=== PATIENT | female | born 1990 | race Caucasian/White ===

== ENCOUNTER → 2016-12-05 | Outpatient (CLI) | payer BC ==
[~2016-12-05] MED LIST: BCPILLS PO; ONDA4TAB7 SL
[2016-12-08 07:28] LABS: CHLAMYDIA TRACH RNA*** NOT DETECTED (NOT DETECTED); GC (NEIS GONORRHOEAE)RNA** NOT DETECTED (NOT DETECTED)
== END | disposition home or self-care (01) ==
LOC: C.LABSPEC 17:19
PROVIDERS: ATTEND Physician Assistant
DX: Z01.419 Encounter for gynecological examination (general) (routine) without abnormal findings (principal)

== ENCOUNTER 2020-10-10 23:45 | Inpatient (IN) ==
[2020-10-11] MEDS ORDERED: OXYTOCIN 30 UNITS/500 ML BAG IV PRN ×2 (00:17→09:55)
[2020-10-11] MEDS ORDERED: PENICILLIN G POTASSIUM 3 MU in DEXTROSE 5% 100 ML IV PRN (00:17)
[2020-10-11] MEDS: LACTATED RINGER'S 1,000 ML IV PRN ×2 (00:31→02:20)
[2020-10-11] MEDS ORDERED: PENICILLIN G POTASSIUM 6 MU in DEXTROSE 5% 250 ML IV ONE (00:45)
[2020-10-11 00:50] LABS: Hematocrit (blood only) 33.4 % (37-47); Hemoglobin 11.5 g/dL (12.0-16.0); Mean Corpuscular Hemoglobin 30.3 pg (25-34); Mean Corpuscular Hgb Conc 34.4 g/dL (32-36); Mean Corpuscular Volume 88.1 fL (80-100); Mean Platelet Volume 10.7 fL (7.4-10.4); Platelet Count 167 K/uL (130-400); Red Blood Count 3.79 M/uL (4.2-5.4); White Blood Count 11.02 K/uL (4.8-10.8)
[2020-10-11] MEDS ORDERED: ONDANSETRON INJ 2 MG/ML 2 ML VIAL IV PRN ×2 (01:11→04:59)
[2020-10-11] MEDS ORDERED: ONDANSETRON INJ 2 MG/ML 2 ML VIAL ONE (01:13)
[2020-10-11] MEDS ORDERED: ceFAZolin 2000MG 2,000 MG/15 ML SYR IV ONE ×2 (02:30→03:15)
[2020-10-11] MEDS ORDERED: VANCOMYCIN HCL 1,750 MG in SODIUM CHLORIDE 0.9% 500 ML IV ONE (02:45)
[2020-10-11 03:10] LABS: BUN Creatinine Ratio 10.7 (10-20); Calcium 8.8 mg/dl (8.5-10.1); Creatinine Clr Calc Pharmacy 147.7 ml/min; Est GFR (African American) 144.6 ml/min; Est GFR (Non-African American) 124.7 ml/min; Potassium 3.6 mmol/L (3.5-5.1)
--- NOTE | 2020-10-11 03:28 | Hospitalist Consultation ---
Date of Consultation October 11, 2020 Assessment & Plan (1) Tachycardia: 30yo at 38+5wga in active labor presents with sudden-onset tachycardia, palpitations, and chest discomfort about 10-20 minutes after penicillin IV infusion was started. Tachycardia, palpitations, chest discomfort Agree with 1L fluid bolus Both mother and tachycardia have resolved at this time; patient is hemodynamically stable While patient was symptomatic, EKG showed sinus tachycardia, possibly atrial flutter Differential includes penicillin hypersensitivity reaction, pulmonary embolism, atrial flutter Factors supporting penicillin reaction include symptom onset in relation to start of infusion and gradual improvement since infusion discontinuation; however, patient without classic hypersensitivity symptoms Some concern for PE - recommend BL LE duplex to evaluate (d-dimer without utility in this case, CT is relatively contraindicated prior to delivery) For changing antibiotic for GBS treatment, recommend avoiding cephalosporins if possible (very small but nonzero chance of cross-reactivity if patient's symptoms represented penicillin hypersensitivity) Supervising Physician Co-Signing Physician Notes Attending addendum: I have supervised the medical residents activities, and agree with the H&P unless as otherwise noted. Assessment and Plan: SVT- Likely volume depleted, given 1 L fluid normal saline, may need a second liter as well. Check CBC with differential, chemistry profile and magnesium levels Continue to monitor closely Order lower extremity venous Dopplers, further testing for PE if abnormal GBS treatment- Avoid penicillins of note as adverse reaction Would avoid cephalosporins at this time as well. Would add azithromycin 5 mg IV daily if further treatment is needed Remaining orders and notations as noted. Hospitalist service will follow along during hospital stay History of Present Illness Reason for Consultation: Tachycardia, palpitations Attending Physician: Hemanth Espinoza MD History of Present Illness Patient is a 30yo @ 38+5wga who developed sudden-onset tachycardia (150- 170s), palpitations, chest discomfort, and infrequent shivering while in labor. Symptoms started about 10-20 minutes after penicillin infusion began, which was started because patient is GBS positive. Within about 20 minutes of symptom onset, penicillin was discontinued. In the 30-40 minutes since then, patient's symptoms have improved slightly, though they have not resolved. tachycardia was noted, which began at the same time as patient's tachycardia; however, tachycardia resolved about 20 minutes after penicillin infusion was stopped. Patient endorses nausea which preceded onset of the above symptoms. Patient denies shortness of breath, headache, vision changes, current chest pain, or other new symptoms. Allergies Allergy/AdvReac Type Severity Reaction Status Date / Time Penicillins Allergy Severe Tachycardia Verified 10/11/20 03:17 Home Medications Medication Instructions Recorded Confirmed Type prenat.vits,skyler,[id number] 1 tab PO DAILY 03/06/20 10/11/20 History ferrous sulfate 325 mg (65 mg 325 mg PO DAILY 10/02/20 10/11/20 History iron) tablet (Feosol) docusate sodium 100 mg capsule 100 mg PO DAILY 10/11/20 10/11/20 History (Colace) Patient History Surgical History H/O oral surgery Family History Grandfather (Paternal) Cancer Grandmother (Paternal) Cancer Mother Hypertension Grandmother (Maternal) Hypertension Father Multiple sclerosis Sister Multiple sclerosis Other Diabetes Denies family history of Ovarian cancer Bipolar disorder Colorectal cancer Social History (Updated 03/06/20 @ 10:11 by Shantell Dodson) Smoking Status: Never smoker Hx Alcohol Use: No Hx Substance Use: No Preferred Language: Belizean Communication Ability: Effective Street Sweeper Operator Required: No Beliefs That Will Affect Care: None marital status: marital status details: Thad (37) [phone] Current Living Situation: Spouse Current Living Situation Comment: house with current occupational status: employed current occupation: vocational rehab counselor Other Information That Helps Us Care for You: No Feels Safe at Home: Yes Safety Concerns: Feels Safe At This Time Assistive Devices: None Review of Systems Review of Systems: See HPI Physical Exam Physical Exam: Constitutional: mild but appropriate distress secondary to labor, nausea HEENT: no conjunctival injection, no perioral edema CV: tachycardic, no murmur appreciated, extremities well-perfused Resp: CTABL, no wheezes/rales/rhonchi appreciated, no stridor GI: gravid Skin: no hives or other rash appreciated Neuro: AOx4, no focal neurological deficits appreciated Results & Data Results & Data ([facility]) Vital Signs (Past 12 Hours) Vital Signs Temp Pulse Resp BP Pulse Ox 10/11/20 03:12 87 96 10/11/20 03:07 83 97 10/11/20 03:02 83 97 10/11/20 02:59 93 H 97/63 L 10/11/20 02:57 93 H 97 10/11/20 02:52 97 H 97 10/11/20 02:47 86 98 10/11/20 02:44 82 111/69 10/11/20 02:42 88 99 10/11/20 02:37 105 H 100 10/11/20 02:35 36.6 C 18 10/11/20 02:32 98 H 99 10/11/20 02:30 88 106/65 10/11/20 02:27 88 99 10/11/20 02:22 88 99 10/11/20 02:18 95 H 111/72 10/11/20 02:17 103 H 100 10/11/20 02:12 99 H 99 10/11/20 02:07 110 H 99 10/11/20 02:02 141 H 99 10/11/20 01:59 139 H 102/56 L 10/11/20 01:57 122 H 99 10/11/20 01:52 147 H 99 10/11/20 01:47 156 H 99 10/11/20 01:44 151 H 114/55 L 10/11/20 01:42 153 H 99 10/11/20 01:37 164 H 99 10/11/20 01:32 148 H 99 10/11/20 01:30 36.7 C 10/11/20 01:29 153 H 112/56 L 10/11/20 01:27 153 H 99 10/11/20 01:22 151 H 98 10/11/20 01:03 76 115/63 10/11/20 00:29 36.6 C 18 10/10/20 23:59 36.6 C 82 18 134/80 Resident Activity Tracking Resident Involvement: Resident Care Provided Care Provided: Adult Hospital Medicine and OB Delivery
[2020-10-11] MEDS ORDERED: BUPIVACAINE 0.25% 30 ML VIAL ONE (04:11)
[2020-10-11] MEDS ORDERED: ePHEDrine sulfate 50 MG/ML AMP ONE (04:11)
[2020-10-11] MEDS ORDERED: fentaNYL 2MCG/ML ROPIVACAINE 1.25MG/ML 100 ML BAG EPI ONE (04:11)
[2020-10-11] MEDS ORDERED: SODIUM CHLORIDE 0.9% INJ 10 ML VIAL ONE (04:11)
[2020-10-11] MEDS ORDERED: fentaNYL citrate 100 MCG/2 ML VIAL ONE (04:11)
--- NOTE | 2020-10-11 04:25 | Anesthesiology Consultation ---
Date of Service October 11, 2020 Assessment & Plan Chart Review Chart Review: Acceptable Risk for Surgery, Patient NOT seen in Pre Admission Testing and Acceptable Risk for Labor Epidural Consults Requested none ASA ASA2 Proposed Anesthesia Anesthesia Type: Labor Epidural and CSE History Height/Weight Height: 5 ft 3 in Weight: 86.183 kg Allergies Allergy/AdvReac Type Severity Reaction Status Date / Time Penicillins Allergy Severe Tachycardia Verified 10/11/20 03:17 Medications Home Medications Medication Instructions Recorded Confirmed Last Taken prenat.vits,skyler,[id number] 1 tab PO DAILY 03/06/20 10/11/20 10/10/20 ferrous sulfate 325 mg (65 mg 325 mg PO DAILY 10/02/20 10/11/20 10/10/20 iron) tablet (Feosol) docusate sodium 100 mg capsule 100 mg PO DAILY 10/11/20 10/11/20 10/10/20 (Colace) Active Medications Generic Name Dose Route Start Last Admin Trade Name Freq PRN Reason Stop Dose Admin Lactated Ringer's 1,000 mls @ 125 mls/hr 10/11/20 00:17 10/11/20 02:20 Lr IV 10/13/20 00:16 125 mls/hr .Q8H PRN Administration L&D Protocol Protocol Exercise / Class Metabolic Activity II 4-5 Yardwork/Stairs/Walk up hill Past Family History Family History Grandfather (Paternal) Cancer Grandmother (Paternal) Cancer Mother Hypertension Grandmother (Maternal) Hypertension Father Multiple sclerosis Sister Multiple sclerosis Other Diabetes Denies family history of Ovarian cancer Bipolar disorder Colorectal cancer Past Surgical History Surgical History H/O oral surgery Past Anesthesia History No Hx of Anesthesia Complications and No Family Hx of Anesthesia Complications History of PONV No Hx of PONV and No Hx of Motion Sickness Social History Smoking Status: Never smoker Hx Alcohol Use: No Hx Substance Use: No Physical Exam Vital Signs Last Vital Signs Temp 36.5 C 10/11/20 03:30 Pulse 94 H 10/11/20 04:19 Resp 18 10/11/20 03:30 BP 118/63 10/11/20 03:29 Pulse Ox 99 10/11/20 04:19 Testing Laboratory Results 10/11/20 00:36 10/11/20 02:15
[2020-10-11] MEDS ORDERED: NALOXONE HCL 1 MG in SODIUM CHLORIDE 0.9% 1000ML 1,000 ML IV PRN (04:59)
[2020-10-11] MEDS ORDERED: ePHEDrine sulfate 50 MG/ML AMP IV PRN (04:59)
[2020-10-11] MEDS ORDERED: NALBUPHINE HCL INJ 10 MG/ML AMP IV PRN (04:59)
[2020-10-11] MEDS ORDERED: NALOXONE HCL 0.4 MG/1 ML VIAL/CARP IV PRN (04:59)
[2020-10-11] MEDS ORDERED: diphenhydrAMINE 50 MG/ML VIAL IV PRN (04:59)
[2020-10-11] MEDS ORDERED: fentaNYL 2MCG/ML ROPIVACAINE 1.25MG/ML 100 ML BAG EPI PRN (04:59)
[2020-10-11] MEDS ORDERED: PROMETHAZINE HCL 25 MG in SODIUM CHLORIDE 0.9% 50 ML IV PRN (04:59)
--- NOTE | 2020-10-11 07:53 | History & Physical Report ---
Date of Service October 11, 2020 Assessment & Plan (1) Supervision of normal intrauterine in primigravida: Plan: Patient is a 30-year-old at 38 weeks 4 days gestational age presents with spontaneous rupture membranes. Patient is reporting increasing contractions. 1.Fetus: Rective NST 2. Labor SROM. Will augment as indicated 3. Vitals wnl 4. GBS positive: PCN (2) SROM (spontaneous rupture of membranes): History of Present Illness Primary Care Provider: NO PCP 30-year-old at 38 weeks 4 days gestational age presents for leakage of fluid. Patient was noted be grossly ruptured. reports some pinkish discharge. Reports irregular contractions. Good movement. complicated by GBS positive. OB Labs: Blood Type A Positive 03/12/20 Antibody Screen NEGATIVE 03/12/20 Hemoglobin 10.7 g/dL (12.0-16.0) L 07/27/20 Hematocrit 31.5 % (37-47) L 07/27/20 Mean Corpuscular Volume 81.5 fL (80-100) 03/12/20 Platelet Count 235 K/uL (130-400) 03/12/20 Rubella IgG Antibody Immune (Immune) 03/12/20 Rapid Plasma Reagin Nonreactive (Nonreactive) 03/12/20 Hepatitis B Surface Antigen Neg (Neg) 03/12/20 HIV (1&2) Ab and P24 Ag, 4th Gener Neg (Neg) 03/12/20 Glucose 1 Hour 50 gm Load 108 mg/dl (70-130) 07/27/20 Maternal Serum Alpha Fetoprotein 39.7 ng/mL 05/07/20 OB Optional Labs: Chlamydia trachomatis RNA NOT DETECTED (NOT DETECTED) 03/12/20 Neisseria gonorrhoeae RNA NOT DETECTED (NOT DETECTED) 03/12/20 Alpha Fetoprotein Triple Screen SEE NOTE 05/07/20 Labs Reviewed: cf/sma neg low risk invitae--akh afp neg--ak Allergies Allergy/AdvReac Type Severity Reaction Status Date / Time Penicillins Allergy Severe Tachycardia Verified 10/11/20 03:17 Home Medications Medication Instructions Recorded Confirmed Type prenat.vits,skyler,[id number] 1 tab PO DAILY 03/06/20 10/11/20 History ferrous sulfate 325 mg (65 mg 325 mg PO DAILY 10/02/20 10/11/20 History iron) tablet (Feosol) docusate sodium 100 mg capsule 100 mg PO DAILY 10/11/20 10/11/20 History (Colace) Patient History Surgical History H/O oral surgery Family History Grandfather (Paternal) Cancer Grandmother (Paternal) Cancer Mother Hypertension Grandmother (Maternal) Hypertension Father Multiple sclerosis Sister Multiple sclerosis Other Diabetes Denies family history of Ovarian cancer Bipolar disorder Colorectal cancer Social History (Updated 03/06/20 @ 10:11 by Shantell Dodson) Smoking Status: Never smoker Hx Alcohol Use: No Hx Substance Use: No Preferred Language: Romanian Communication Ability: Effective Public Safety Director Required: No Beliefs That Will Affect Care: None marital status: marital status details: Thad (37) [phone] Current Living Situation: Spouse Current Living Situation Comment: house with current occupational status: employed current occupation: vocational rehab counselor Other Information That Helps Us Care for You: No Feels Safe at Home: Yes Safety Concerns: Feels Safe At This Time Assistive Devices: Glasses Physical Exam Constitutional: WD/WN, vitals as above well developed, well nourished and + well hydrated; no acute distress Neck: trachea midline, no thyromegaly Respiratory: normal respiratory effort, lungs clear to auscultation no respiratory distress, no labored breathing and no cough Cardiovascular: RRR, no murmur, no edema Heart Sounds: normal S1 and normal S2 Gastrointestinal (Abdomen): normal bowel sounds, soft, nontender, no hepatosplenomegaly Inspection/Auscultation: abdomen not distended and no abdominal edema Musculoskeletal: no cyanosis or clubbing, extremities motor strength 5/5 Head/Neck/Chest: + head abnormal to inspection Skin: no rashes, warm and dry normal turgor Psychiatric: A+Ox3, euthymic affect Apperance: appropriately dressed and appropriately groomed Genitourinary: Manual OB Exam: + cervical dilation 5 cm, + cervical effacement 70%, + station -2 and + amniotic fluid clear OB Exam Monitor Tracing: + external FHT monitor used, + external uterine monitor used, + category I and + normal FHT variability Lymphatic: no cervical or axillary lymphadenopathy Results & Data ([facility]) Vital Signs (Past 12 Hours) Vital Signs Temp Pulse Resp BP 10/10/20 23:59 36.6 C 82 18 134/80 Coding Level of Care Code None Diagnoses Supervision of normal intrauterine in primigravida Z34.00 SROM (spontaneous rupture of membranes)
--- NOTE | 2020-10-11 08:03 | Labor Progress Brief Note ---
Date of Service October 11, 2020 Subjective presented to bedside to evaluate acute onset maternal and tachycardia. Patient is reporting heart palpitations and related chest discomfort. Patient is denying any chest tightness, shortness of breath, throat tightness, or rash. Patient reports nausea followed by vomiting preceding the onset of tachycardia. the symptoms started approximately 10-15 minutes after starting penicillin. Patient denies any known history of penicillin allergy and has had amoxicillin within the past couple years and tolerated without issue. We discontinue the medication and completed an EKG which showed sinus tachycardia. Approximately 10 minutes to 15 minutes after stopping the penicillin symptoms started to improve and heart rate declined to normal. tachycardia after also resolved. We placed a scalp electrode for better monitoring. Contacted the hospitalist service for evaluation please see their note for additional details. I contacted pharmacy to discuss further treatment of the GBS positive as we were concerned that this was a reaction to the penicillin. In discussion with pharmacy we did not feel that this was an anaphylactic reaction. They recommended we try Ancef because they did not feel that this was an anaphylactic reaction and would be safe to give. Medicine later contacted us and recommended lower extremity Doppler to evaluate for DVT and help rule out a PE. They recommended against the Ancef however the Ancef had already been given to the patient and she did tolerate it well. Assessment & Plan Admission and Anticipated Discharge Date Admission Date: October 11, 2020 Results & Data ([facility]) Vital Signs (Past 12 Hours) Vital Signs Temp Pulse Resp BP Pulse Ox 10/11/20 07:49 76 99 10/11/20 07:44 83 99 10/11/20 07:39 97 H 98/56 L 98 10/11/20 07:34 81 100 10/11/20 07:29 72 99 10/11/20 07:26 74 102/59 L 10/11/20 07:24 109 H 98 10/11/20 07:19 87 99 10/11/20 07:14 94 H 99 10/11/20 07:10 91 H 116/65 10/11/20 07:09 86 99 10/11/20 07:04 91 H 98 10/11/20 07:00 18 10/11/20 06:59 109 H 99 10/11/20 06:56 93 H 108/69 10/11/20 06:54 96 H 99 10/11/20 06:49 103 H 97 10/11/20 06:44 86 98 10/11/20 06:40 82 107/66 10/11/20 06:39 86 98 10/11/20 06:34 84 96 10/11/20 06:30 18 10/11/20 06:29 90 96 10/11/20 06:25 89 98/56 L 10/11/20 06:24 83 97 10/11/20 06:19 84 96 10/11/20 06:14 85 97 10/11/20 06:10 84 100/59 L 10/11/20 06:09 86 97 10/11/20 06:04 82 96 10/11/20 06:00 16 10/11/20 05:59 86 97 10/11/20 05:54 82 99/56 L 97 10/11/20 05:51 89 97/55 L 10/11/20 05:49 85 97 10/11/20 05:47 86 97/56 L 10/11/20 05:44 96 H 98 10/11/20 05:41 95 H 96/56 L 10/11/20 05:39 85 98 10/11/20 05:37 88 101/59 L 10/11/20 05:34 85 97 10/11/20 05:32 87 94/58 L 10/11/20 05:30 18 10/11/20 05:29 94 H 97 10/11/20 05:26 86 98/56 L 10/11/20 05:24 85 98 10/11/20 05:21 90 100/61 10/11/20 05:19 93 H 98/60 L 99 10/11/20 05:18 36.6 C 18 10/11/20 05:17 98 H 105/62 10/11/20 05:15 100 H 110/61 10/11/20 05:14 96 H 100 10/11/20 05:13 87 129/59 L 10/11/20 05:11 87 88/55 L 10/11/20 05:10 81 90/54 L 10/11/20 05:09 83 89/55 L 97 10/11/20 05:07 85 91/55 L 10/11/20 05:05 89 82/47 L 10/11/20 05:04 94 H 98 10/11/20 05:03 85 87/52 L 10/11/20 05:01 95 H 93/50 L 10/11/20 05:00 97 H 18 87/54 L 10/11/20 04:59 93 H 89/54 L 98 10/11/20 04:57 85 96/61 L 10/11/20 04:55 85 101/64 10/11/20 04:54 85 98 10/11/20 04:53 104 H 111/67 10/11/20 04:51 97 H 116/76 10/11/20 04:49 92 H 97 10/11/20 04:48 100 H 115/80 10/11/20 04:44 103 H 98 10/11/20 04:40 100 H 115/82 10/11/20 04:39 92 H 99 10/11/20 04:34 94 H 98 10/11/20 04:30 18 10/11/20 04:29 84 99 10/11/20 04:24 83 95 10/11/20 04:19 94 H 99 10/11/20 04:14 80 98 10/11/20 04:09 86 98 10/11/20 03:52 90 99 10/11/20 03:47 78 99 10/11/20 03:42 85 98 10/11/20 03:37 94 H 99 10/11/20 03:32 83 99 10/11/20 03:30 36.5 C 18 10/11/20 03:29 91 H 118/63 10/11/20 03:27 88 97 10/11/20 03:22 95 H 98 10/11/20 03:17 84 98 10/11/20 03:12 87 96 10/11/20 03:07 83 97 10/11/20 03:02 83 97 10/11/20 02:59 93 H 97/63 L 10/11/20 02:57 93 H 97 10/11/20 02:52 97 H 97 10/11/20 02:47 86 98 10/11/20 02:44 82 111/69 10/11/20 02:42 88 99 10/11/20 02:37 105 H 100 10/11/20 02:35 36.6 C 18 10/11/20 02:32 98 H 99 10/11/20 02:30 88 106/65 10/11/20 02:27 88 99 10/11/20 02:22 88 99 10/11/20 02:18 95 H 111/72 10/11/20 02:17 103 H 100 10/11/20 02:12 99 H 99 10/11/20 02:07 110 H 99 10/11/20 02:02 141 H 99 10/11/20 01:59 139 H 102/56 L 10/11/20 01:57 122 H 99 10/11/20 01:52 147 H 99 10/11/20 01:47 156 H 99 10/11/20 01:44 151 H 114/55 L 10/11/20 01:42 153 H 99 10/11/20 01:37 164 H 99 10/11/20 01:32 148 H 99 10/11/20 01:30 36.7 C 10/11/20 01:29 153 H 112/56 L 10/11/20 01:27 153 H 99 10/11/20 01:22 151 H 98 10/11/20 01:21 20 10/11/20 01:03 76 115/63 10/11/20 00:29 36.6 C 18 10/10/20 23:59 36.6 C 82 18 134/80 Coding Level of Care Code None
[2020-10-11] MEDS ORDERED: ACETAMINOPHEN 325 MG TAB PO PRN (09:55)
[2020-10-11] MEDS ORDERED: bisacodyL 10 MG SUPP PR PRN (09:55)
[2020-10-11] MEDS ORDERED: SUPERCREAM 0.870% 15 GM JAR EXT PRN (09:55)
[2020-10-11] MEDS ORDERED: BENZOCAINE 20% AER SPR 82.5 GM CAN EXT PRN (09:55)
[2020-10-11] MEDS ORDERED: HYDROCORTISONE ACETATE 25 MG SUPP PR PRN (09:55)
[2020-10-11] MEDS ORDERED: DIPHTHERIA/TETANUS/PERTUSSIS 0.5 ML SYR/VIAL IM ONE (09:55)
--- NOTE | 2020-10-11 10:14 | Delivery Summary ---
Vaginal Delivery Summary Date of Service October 11, 2020 Vaginal Delivery Summary [facility] PREOPERATIVE DIAGNOSIS: 1. Single intrauterine at 38 5/7 wga 2. SROM/labor 3. GBS+ POSTOPERATIVE DIAGNOSIS: 1. Single intrauterine at 38 5/7 wga 2. SROM/labor 3. GBS+ 4. Delivered PROCEDURE: 1. Normal spontaneous vaginal delivery. SURGEON: Mounika Toure MD ANESTHESIA: Epidural. ESTIMATED BLOOD LOSS: 200 mL FLUIDS: Continuous LR. URINE OUTPUT: None. COMPLICATIONS: None. CONDITION: Stable. INDICATIONS: 30 y/o G1 at 38 5/7 wga presented last evening w/ ctx increasing in frequency and LOF. She was found to be SROM and admitted. She was started on penicillin for GBS+ prophylaxis however shortly after initiating penicillin, was found to be tachycardic with symptoms associated and tachycardia was also noted. PCN was stopped and hospitalist was consulted to r/o anaphylactic reaction. Pharmacy was contacted and recommended ancef for treatment and the pt did tolerate this well. She continued to progress until she was complete and desired to push. Venous doppler was recommended by medicine to r/o DVT so was ordered following delivery. FINDINGS: A viable female with Apgars of 8 and 9 at 1 and 5 minutes respectively. SPECIMEN: Cord blood OPERATIVE REPORT: The patient progressed to 10 cm, 100% effaced and +2 station, pushed over intact perineum with anesthesia to deliver a viable female , Apgars as above. Head of delivered in [place] position. Loose nuchal cord was present and delivered through. Body and shoulders were delivered without difficulty. was delivered to maternal abdomen and nursing staff. Delayed cord clamping was performed for 60 seconds. Cord was clamped and cut. Cord blood was obtained. Placenta delivered spontaneously intact with 3-vessel cord. IV oxytocin and fundal massage were given for excellent hemostasis. Vagina, cervix, perineum, and placenta were inspected. A left labial laceration was noted and repaired using 4-0 Vicryl, excellent hemostasis was achieved. Sponge and needle counts correct x2. No sponges were left behind. Mother and stable in immediate period. [facility] Vaginal Delivery Charge Vaginal Delivery Codes: 80594 global code for the antepartum, delivery, and post- Delivery Type Details: [facility]
--- NOTE | 2020-10-11 11:15 | Anesthesia Procedure Note ---
Date of Service October 11, 2020 Anesthesia Post Epidural Note Vital Signs Vital Signs: Temp Pulse Resp BP Pulse Ox 98.4 F 74 16 109/63 97 10/11/20 07:15 10/11/20 11:04 10/11/20 07:15 10/11/20 11:04 10/11/20 09:34 Notes Mental Status: alert / awake / arousable and participated in evaluation Nausea / Vomiting: adequately controlled Pain: adequately controlled Airway Patency, RR, SpO2: stable & adequate BP & HR: stable & adequate Hydration State: stable & adequate Neuraxial Anesthesia: was administered and sensory block is resolving Anesthetic Complications: no major complications apparent and Pt Satisfied with anesthetic care Epidural: Removed without complications and With tip intact
--- NOTE | 2020-10-11 11:51 | Ultrasound Report ---
BILATERAL LOWER EXTREMITY VENOUS DOPPLER HISTORY: Acute pain and swelling of the lower legs r/o DVT, tachycardia in labor following penicilli n COMPARISON STUDY: None. FINDINGS: There is normal compressibility, flow, and augmentation within the bilateral lower extremit y deep venous systems. IMPRESSION: No DVT within the right or left lower extremity. ACT 112: Negative or not required by law. Electronically signed by: Hemanth Dixon M.D. 10/11/2020 11:50 AM
--- NOTE | 2020-10-11 12:23 | Communication Note ---
Date of Service: October 11, 2020 30 yo at 38.5 weeks, complicated by +GBS infection, presenting with labor. Received penicillin overnight for GBS infection but developed acute symptoms of chest pain, palpitations, tachycardia almost immediately after initiating penicillin. Penicillin discontinued, replaced with Ancef. Symptoms resolved and hemodynamically stable shortly after penicillin discontinuation. Pt seen by hospitalist team. 8/5 AM- chart reviewed, labs unremarkable, other etiologies such as pulmonary embolism ruled out in favor of penicillin allergic/hypersensitivity reaction. Pt seen this morning, no acute complaints, symptoms resolved. Benign physical exam. No concerns from hospitalist team, patient counseled about allergic/hypersensitivity reactions, advised to follow up with PCP after discharge and inform about penicillin reaction. I personally examined the patient and verified all arora points of history and exam, discussed case, and agree with decision making with Dr Guajardo. Feeling good. No further heart racing since penicillin was stopped. No chest pain or shortness of breath. [place] nothing untoward in her chest/heart during delivery either. Tachycardiasee above almost certainly a reaction to the penicillin. Discussed with patient would hesitate even call it a true allergy given lack of rash etc.although certainly advised that any penicillin based antibiotics should be used with caution and close observation in the future. Resident Activity Tracking Resident Involvement: Resident Care Provided Care Provided: Adult Hospital Medicine
[2020-10-11] MEDS: IBUPROFEN 600 MG TAB PO PRN ×2 (12:49→17:32)
[2020-10-11] MEDS: DOCUSATE SODIUM 100 MG CAP PO SCH (21:14)
--- NOTE | 2020-10-12 02:20 | Billing Data ---
Date of Service October 12, 2020 Coding Level of Care Code 99533 Inpt Consult Level 3
--- NOTE | 2020-10-12 06:32 | Obstetrical Progress Note ---
Date of Service <Laura GregoryDO - Last Filed: 10/12/20 06:32> October 12, 2020 Assessment & Plan <Laura Jenkins DO - Last Filed: 10/12/20 06:32> (1) Encounter for care and examination after delivery: 30 yo post op day1 from [facility] , doing well. -Continue routine post care. -vital signs reviewed and WNL (Tmax 36.8) -Blood Type A+, GBS+ given Ancef, Rubella Immune -Encourage ambulation, monitor and control pain with Motrin, Percocet PRN, resume regular diet, monitor lochia -encourage breast feeding -hemoglobin 11.5 (8/5) Day #:: 1 <Mounika Toure MD - Last Filed: 10/12/20 07:18> (1) Encounter for care and examination after delivery: Subjective <Laurajeremias Jenkins DO - Last Filed: 10/12/20 06:32> Ambulation: ambulating normally Voiding: no voiding problems Passing Gas:: Yes (no stool yet) Diet Tolerance:: regular diet Lochia:: Small Feeding Type:: breast feeding Current Pain Level(1-10): 1 (pain well controlled on medication) Review of Systems Denies fever, chills, sweats Denies shortness of breath, difficulty breathing, chest pain, palpitations, chest pressure. Denies breast pain. Denies dysuria. Denies headache or changes in vision. Physical Exam <Laura GregoryDO - Last Filed: 10/12/20 06:32> General: Alert, oriented. No acute distress. Cardiac: Regular rate and rhythm, no murmurs/rubs/gallops. Respiratory: Clear to auscultation bilaterally a/p, no wheezes/rales/rhonchi. No increased work of breathing. Symmetrical chest rise. No respiratory distress. Abdomen: Soft, nontender, nondistended. Bowel sounds present. Uterus: Uterine fundus firm, palpable at umbilicus. Lower Extremities: No lower extremity edema or swelling. No deep calf pain. Mansi's negative bilaterally.. Results & Data ([facility]) <Laura Jenkins DO - Last Filed: 10/12/20 06:32> Vital Signs (Past 12 Hours) Vital Signs Temp Pulse Resp BP Pulse Ox 10/12/20 03:24 36.8 C 76 16 99/62 L 97 10/11/20 23:20 37 C 79 16 106/70 96 10/11/20 19:25 36.8 C 66 18 111/73 98 Medications Administered Current Inpatient Medications Acetaminophen (Acetaminophen 325 Mg Tab) 650 mg PO Q6H PRN PRN Reason: Pain/THOMAS/Fever Stop: 11/10/20 09:54 Benzocaine (Benzocaine 20% Aer Spr 82.5 Gm Can) 1 appln EXT PRN PRN PRN Reason: Perineal Discomfort Stop: 11/10/20 09:54 Last Admin: 10/11/20 12:49 Dose: 1 appln Documented by: Bisacodyl (Bisacodyl 5 Mg Tabec) 5 mg PO 1999 [facility] Stop: 10/12/20 20:01 Bisacodyl (Bisacodyl 10 Mg Supp) 10 mg HI DAILY PRN PRN Reason: No BM on 2nd post- day Stop: 11/10/20 09:54 Cocaine HCl (Supercream 0.870% 15 Gm Jar) 1 gm EXT BID PRN PRN Reason: Hemorrhoidal Inflammation Stop: 10/25/20 09:54 Docusate Sodium (Docusate Sodium 100 Mg Cap) 100 mg PO DAILY@ [facility] Stop: 11/10/20 20:59 Last Admin: 10/11/20 21:14 Dose: 100 mg Documented by: Hydrocortisone (Hydrocortisone Acetate 25 Mg Supp) 25 mg HI BID PRN PRN Reason: Hemorrhoidal Inflammation Stop: 11/10/20 09:54 Oxytocin (Pitocin) 30 units in 500 mls @ 333.333 mls/hr IV .Q1H30M PRN; Protocol PRN Reason: Bleeding Control Stop: 11/10/20 09:54 Ibuprofen (Ibuprofen 600 Mg Tab) 600 mg PO Q4H PRN PRN Reason: Pain/THOMAS/Cramping/Fever Stop: 11/10/20 09:54 Last Admin: 10/11/20 17:32 Dose: 600 mg Documented by: Prenat Multivit/[place]/Iron/Folic Ac ( Vitamin 1 Tab) 1 tab PO DAILY@08 [facility] Stop: 11/11/20 07:59 <Mounika Toure MD - Last Filed: 10/12/20 07:18> Co-Signing Physician Notes Resident Physician Supervision Note: I interviewed and examined the patient. Discussed with Dr. Jenkins and agree with findings and plan as documented in the note. Any exceptions or clarifications are listed here: PP1 from , doing well. No further tachycardic events following penicillin discontinuation yesterday AM. Hospitalist in agreement suspect a reaction to penicillin. Duplex wnl. VSS, exam benign and wnl. Continue routine pp care Documented By: Mounika Toure MD Resident Activity Tracking <Laura Jenkins, DO - Last Filed: 10/12/20 06:32> Resident Involvement: Resident Care Provided Care Provided: OB Delivery
[2020-10-12 07:30] LABS: Hematocrit (blood only) 36.1 % (37-47); Hemoglobin 12.2 g/dL (12.0-16.0); Mean Corpuscular Hemoglobin 30.5 pg (25-34); Mean Corpuscular Hgb Conc 33.8 g/dL (32-36); Mean Corpuscular Volume 90.3 fL (80-100); Mean Platelet Volume 10.9 fL (7.4-10.4); Platelet Count 175 K/uL (130-400); RDW Coefficient of Variation 13.3 % (11.5-14.5); RDW Standard Deviation 43.3 fL (36.4-46.3); White Blood Count 16.49 K/uL (4.8-10.8)
[2020-10-12] MEDS: IBUPROFEN 600 MG TAB PO PRN ×3 (08:04→19:33)
[2020-10-12] MEDS: DOCUSATE SODIUM 100 MG CAP PO SCH ×2 (08:04→19:33)
[2020-10-12] MEDS: PRENATAL VITAMIN 1 TAB PO SCH (08:04)
--- NOTE | 2020-10-12 18:31 | Electrocardiogram Report ---
Test Reason : Blood Pressure : / mmHG Vent. Rate : 153 BPM Atrial Rate : 153 BPM P-R Int : 096 ms QRS Dur : 090 ms QT Int : 340 ms P-R-T Axes : 029 041 046 degrees QTc Int : 542 ms Sinus tachycardia with short MI Cannot rule out Inferior infarct , age undetermined Abnormal ECG No previous ECGs available Confirmed by Greg Moser ([id number]) on 10/12/2020 6:31:43 PM Referred By: Hemanth Espinoza Confirmed By:Greg Moser
[2020-10-12] MEDS ORDERED: bisacodyL 5 MG TABEC PO SCH (20:00)
[2020-10-13] MEDS: IBUPROFEN 600 MG TAB PO PRN ×2 (00:49→11:30)
[2020-10-13 06:43] LABS: Hematocrit (blood only) 32.2 % (37-47); Hemoglobin 10.7 g/dL (12.0-16.0)
--- NOTE | 2020-10-13 07:52 | Obstetrical Progress Note ---
Date of Service <Laura Jenkins - Last Filed: 10/13/20 07:52> October 13, 2020 Assessment & Plan <Laura Jenkins - Last Filed: 10/13/20 07:52> (1) Encounter for care and examination after delivery: 30 yo post op day2 from [facility] , doing well. -Continue routine post care. -vital signs reviewed and WNL (Tmax 36.9) -Blood Type A+, GBS+ given Ancef, Rubella Immune -Encourage ambulation, monitor and control pain with Motrin, Percocet PRN, resume regular diet, monitor lochia -encourage breast feeding -hemoglobin 10.7 Day #:: 2 <Imani Prieto MD, FACOG - Last Filed: 10/13/20 08:45> (1) Encounter for care and examination after delivery: Subjective <Laura Jenkins - Last Filed: 10/13/20 07:52> Ambulation: ambulating normally Voiding: no voiding problems Passing Gas:: Yes Diet Tolerance:: regular diet Lochia:: Small Feeding Type:: breast feeding Current Pain Level(1-10): 1 (pain well controlled on medication) Review of Systems Denies fever, chills, sweats Denies shortness of breath, difficulty breathing, chest pain, palpitations, chest pressure. Denies breast pain. Denies dysuria. Denies headache or changes in vision. Physical Exam <Laura Jenkins - Last Filed: 10/13/20 07:52> General: Alert, oriented. No acute distress. Cardiac: Regular rate and rhythm, no murmurs/rubs/gallops. Respiratory: Clear to auscultation bilaterally a/p, no wheezes/rales/rhonchi. No increased work of breathing. Symmetrical chest rise. No respiratory distress. Abdomen: Soft, nontender, nondistended. Bowel sounds present. Uterus: Uterine fundus firm, palpable at umbilicus. Lower Extremities: No lower extremity edema or swelling. No deep calf pain. Mansi's negative bilaterally.. Results & Data ([facility]) <Laura GregoryDO - Last Filed: 10/13/20 07:52> Vital Signs (Past 12 Hours) Vital Signs Temp Pulse Resp BP 10/13/20 00:50 36.9 C 82 18 109/68 Laboratory Results 10/13/20 Range/Units 06:18 Hgb 10.7 L (12.0-16.0) g/dL Hct 32.2 L (37-47) % Medications Administered Current Inpatient Medications Acetaminophen (Acetaminophen 325 Mg Tab) 650 mg PO Q6H PRN PRN Reason: Pain/THOMAS/Fever Stop: 11/10/20 09:54 Benzocaine (Benzocaine 20% Aer Spr 82.5 Gm Can) 1 appln EXT PRN PRN PRN Reason: Perineal Discomfort Stop: 11/10/20 09:54 Last Admin: 10/11/20 12:49 Dose: 1 appln Documented by: Bisacodyl (Bisacodyl 10 Mg Supp) 10 mg MT DAILY PRN PRN Reason: No BM on 2nd post- day Stop: 11/10/20 09:54 Cocaine HCl (Supercream 0.870% 15 Gm Jar) 1 gm EXT BID PRN PRN Reason: Hemorrhoidal Inflammation Stop: 10/25/20 09:54 Docusate Sodium (Docusate Sodium 100 Mg Cap) 100 mg PO DAILY@ [facility] Stop: 11/10/20 20:59 Last Admin: 10/12/20 19:33 Dose: 100 mg Documented by: Hydrocortisone (Hydrocortisone Acetate 25 Mg Supp) 25 mg MT BID PRN PRN Reason: Hemorrhoidal Inflammation Stop: 11/10/20 09:54 Oxytocin (Pitocin) 30 units in 500 mls @ 333.333 mls/hr IV .Q1H30M PRN; Protocol PRN Reason: Bleeding Control Stop: 11/10/20 09:54 Ibuprofen (Ibuprofen 600 Mg Tab) 600 mg PO Q4H PRN PRN Reason: Pain/THOMAS/Cramping/Fever Stop: 11/10/20 09:54 Last Admin: 10/13/20 00:49 Dose: 600 mg Documented by: Prenat Multivit/[place]/Iron/Folic Ac ( Vitamin 1 Tab) 1 tab PO DAILY@08 [facility] Stop: 11/11/20 07:59 Last Admin: 10/12/20 08:04 Dose: 1 tab Documented by: <Imani Prieto MD, FACOG - Last Filed: 10/13/20 08:45> Co-Signing Physician Notes Resident Physician Supervision Note: I was present with Dr. Jenkins during the history and exam. I discussed the case with the resident and agree with the findings and plan as documented in the note. Any exceptions or clarifications are listed here: stable, routine care. ready for d/c home. instructions reviewed. labs reviewed. f/u 6 wk pp check. abd today with ff 2 down nt, nt calves. Rh pos, RI Documented By: Imani Prieot MD, FACOG Resident Activity Tracking <Laura Jenkins, DO - Last Filed: 10/13/20 07:52> Resident Involvement: Resident Care Provided Care Provided: OB Delivery
[2020-10-13] MEDS: DOCUSATE SODIUM 100 MG CAP PO SCH (08:44)
[2020-10-13] MEDS: PRENATAL VITAMIN 1 TAB PO SCH (08:44)
== END 2020-10-13 12:30 | disposition home or self-care (01) | DRG 807 ==
LOC: OPB 23:45 → 4S1 23:47 → 4S2 10-11 12:35

== ENCOUNTER 2023-02-26 06:51 | Inpatient (IN) ==
[2023-02-26] MEDS ORDERED: LIDOCAINE 1% LOCAL 20 ML VIAL INFIL PRN (07:01)
[2023-02-26] MEDS ORDERED: LACTATED RINGER'S 1,000 ML IV PRN (07:01)
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
[2023-02-26] MEDS ORDERED: ceFAZolin 2000MG 2,000 MG/15 ML SYR IV ONE (07:10)
[2023-02-26 08:00] LABS: Hematocrit (blood only) 34.1 % (37.0-47.0); Hemoglobin 11.1 g/dl (12.0-16.0); Mean Corpuscular Hgb Conc 32.6 g/dL (32.0-36.0); Mean Corpuscular Volume 86.1 fL (80.0-100.0); Platelet Count 157 K/uL (130-400); RDW Coefficient of Variation 12.1 % (11.5-14.5); RDW Standard Deviation 37.9 fL (36.4-46.3); Red Blood Count 3.96 M/uL (4.20-5.40); White Blood Count 12.76 K/ul (4.8-10.8)
[2023-02-26] MEDS ORDERED: fentANYL 2 MCG/ML BUPIVacaine 0.125%-NSS 100ML BAG ONE (09:51)
[2023-02-26] MEDS ORDERED: ePHEDrine sulfate 50 MG/ML AMP ONE (09:51)
[2023-02-26] MEDS ORDERED: SODIUM CHLORIDE 0.9% PF INJ 10 ML VIAL ONE (09:51)
[2023-02-26] MEDS ORDERED: BUPIVACAINE 0.25% PF 30 ML VIAL ONE (09:51)
[2023-02-26] MEDS ORDERED: fentaNYL citrate PF 100 MCG/2 ML VIAL ONE (09:51)
[2023-02-26] MEDS ORDERED: LIDOCAINE 2%/EPINEPHRINE 1:200,000 20 ML PF ONE (09:52)
[2023-02-26] MEDS ORDERED: diphenhydrAMINE 50 MG/ML VIAL IV PRN (10:07)
[2023-02-26] MEDS ORDERED: LIDOCAINE 2%/EPINEPHRINE 1:200,000 20 ML PF EPI STA (10:07)
[2023-02-26] MEDS ORDERED: SODIUM CHLORIDE 0.9% PF INJ 10 ML VIAL EPI STA (10:07)
[2023-02-26] MEDS ORDERED: NALOXONE HCL 0.4 MG/1 ML VIAL/CARP IV PRN (10:07)
[2023-02-26] MEDS ORDERED: fentaNYL citrate PF 100 MCG/2 ML VIAL EPI STA (10:07)
[2023-02-26] MEDS ORDERED: NALBUPHINE HCL 5 MG in SYRINGE 0 ML IV PRN (10:07)
[2023-02-26] MEDS ORDERED: SODIUM CHLORIDE 0.9% PF INJ 10 ML VIAL EPI PRN (10:07)
[2023-02-26] MEDS ORDERED: fentANYL 2 MCG/ML BUPIVacaine 0.125%-NSS 100ML BAG EPI PRN (10:07)
[2023-02-26] MEDS ORDERED: BUPIVACAINE 0.25% PF 30 ML VIAL EPI PRN (10:07)
[2023-02-26] MEDS ORDERED: LIDOCAINE 2% MPF LOCAL 5 ML VIAL EPI PRN (10:07)
[2023-02-26] MEDS ORDERED: ROPIVACAINE 0.5% PF 5 MG/ML 20 ML VIAL EPI PRN (10:07)
[2023-02-26] MEDS ORDERED: fentaNYL citrate PF 100 MCG/2 ML VIAL EPI PRN (10:07)
[2023-02-26] MEDS ORDERED: NALOXONE HCL 1 MG in SODIUM CHLORIDE 0.9% 1,000 ML IV PRN (10:07)
[2023-02-26] MEDS ORDERED: BUPIVACAINE 0.25% PF 30 ML VIAL EPI STA (10:07)
[2023-02-26] MEDS ORDERED: ePHEDrine sulfate 50 MG/ML AMP IV PRN (10:07)
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
[2023-02-26] MEDS: OXYTOCIN 30 UNITS/NSS 30 UNITS/500 ML BAG IV PRN ×2 (10:54→12:19)
--- NOTE | 2023-02-26 11:05 | Delivery Summary ---
Vaginal Delivery Summary Date of Service February 26, 2023 Vaginal Delivery Summary DIAGNOSES: 1. [place] intrauterine at 39wk0d gestation. 2. Spontaneous onset of labor. 3. Group B Streptococcus Pos. PROCEDURE: Spontaneous vaginal delivery without laceration. SURGEON: Jenny Yeboah MD. TEXTILE SCREEN MAKER: None. ESTIMATED BLOOD LOSS: 300 mL. COMPLICATIONS: None. PLACENTA: Spontaneous and intact with a 3-vessel cord. DISPOSITION: Stable to labor and delivery. DESCRIPTION: The patient pushed well and brought the head to in DOA position. The 's head was allowed to deliver with contraction force and no further active pushing, with the perineum protected during this time. There was no nuchal cord. The right shoulder was anterior. The shoulders and body delivered without any difficulty, and the was placed on the maternal abdomen. It was vigorous and moving all extremities, and making respiratory efforts. The cord was doubly clamped by the MD and then cut by the FOB. The placenta delivered spontaneously and was noted to be intact and with a 3VC. The cervix, vagina and perineum were examined and were found to be without defect requiring repair. The fundus was firm and lochia minimal immediately after delivery. MNP Vaginal Delivery Charge Vaginal Delivery Codes: 97328 global code for the antepartum, delivery, and post-
[2023-02-26] MEDS ORDERED: HYDROCORTISONE ACETATE 25 MG SUPP PR PRN (11:37)
[2023-02-26] MEDS ORDERED: ACETAMINOPHEN 325 MG TAB PO PRN (11:37)
[2023-02-26] MEDS ORDERED: OXYTOCIN 30 UNITS/NSS 30 UNITS/500 ML BAG IV PRN (11:37)
[2023-02-26] MEDS ORDERED: bisacodyL 10 MG SUPP PR PRN (11:37)
[2023-02-26] MEDS ORDERED: BENZOCAINE 20% SPRY 85 APPLN/85 GM CAN EXT PRN (11:37)
[2023-02-26] MEDS ORDERED: DIPHTHERIA/TETANUS/PERTUSSIS Vaccine (Tdap, Age 7+yrs) 0.5mL SYR/VL IM ONE (11:37)
[2023-02-26] MEDS ORDERED: MEASLES, MUMPS & RUBELLA VIRUS VACCINE (MMR) VIAL SQ ONE (11:37)
--- NOTE | 2023-02-26 11:41 | Anesthesia Procedure Note ---
Date of Service February 26, 2023 Anesthesia Post Epidural Note Vital Signs Vital Signs: Temp Pulse Resp BP Pulse Ox 98.1 F 149 H 18 114/56 L 98 02/26/23 07:46 02/26/23 11:27 02/26/23 07:46 02/26/23 11:31 02/26/23 11:27 Notes Mental Status: alert / awake / arousable and participated in evaluation Nausea / Vomiting: adequately controlled Pain: adequately controlled Airway Patency, RR, SpO2: stable & adequate BP & HR: stable & adequate Hydration State: stable & adequate Neuraxial Anesthesia: was administered and sensory block is resolving Anesthetic Complications: no major complications apparent and Pt Satisfied with anesthetic care Epidural: Removed without complications and With tip intact
[2023-02-26] MEDS ORDERED: ceFAZolin 1000MG 1,000 MG/7.5 ML SYR IV PRN (14:01)
[2023-02-26] MEDS: IBUPROFEN 600 MG TAB PO PRN (18:17)
[2023-02-26] MEDS: DOCUSATE SODIUM 100 MG CAP PO SCH (21:41)
[2023-02-27] MEDS: IBUPROFEN 600 MG TAB PO PRN ×2 (00:14→08:04)
--- NOTE | 2023-02-27 05:48 | Obstetrical Progress Note ---
Date of Service February 27, 2023 Assessment & Plan (1) Encounter for care and examination after delivery: Plan Pt doing well clinically -Vital signs reviewed and WNL -HGB reviewed -Blood type A+ -Rubella non immune--> MMR ordered -Encourage ambulation -Monitor and control pain with Motrin prn -Monitor lochia -Encourage Admission and Anticipated Discharge Date Admission Date: February 26, 2023 Subjective 32 yo post- day 1 s/p Ambulation: ambulating normally Voiding: no voiding problems Passing Gas:: Yes Diet Tolerance:: regular diet Lochia:: Small Feeding Type:: Current Pain Level: minimal, controlled with motrin Resting comfortably this AM in NAD. Denies THOMAS, CP, SOB, N/V/D, LE pain/swelling. Review of Systems Review of Systems: All systems reviewed & are unremarkable except as noted in HPI & below Physical Exam Physical Exam: General: patient resting comfortably, NAD, non-toxic in appearance, AA&O x 4, answers questions appropriately. Skin: warm, dry, intact HEENT: NC/AT, anicteric sclera, conjunctiva without injection, moist mucus membranes. Heart: +S1/S2, regular, no m/r/g Lungs: equal air entry bilaterally, no rales/rhonchi/wheezes Abd: +BS, soft, NT/ND, uterine fundus firm at umbilicus Ext: warm, no clubbing/cyanosis or edema, Mansi's neg. Neuro: nonfocal, patient AA&O x 4, speech intact, no facial droop, moving all extremities on command. Results & Data Vital Signs (Past 12 Hours) Vital Signs Temp Pulse Resp BP Pulse Ox O2 Del Method 02/27/23 03:00 36.5 C 76 18 98/62 L 97 Room Air 02/26/23 23:15 36.8 C 75 18 100/66 98 Room Air 02/26/23 19:02 37 C 75 18 104/58 L 99 Room Air Resident Activity Tracking Resident Involvement: Resident Care Provided Care Provided: OB Delivery
[2023-02-27 06:11] LABS: Hematocrit (blood only) 32.1 % (37.0-47.0); Hemoglobin 10.7 g/dl (12.0-16.0)
[2023-02-27] MEDS ORDERED: PRENATAL VITAMIN 1 TAB PO SCH (08:00)
[2023-02-27] MEDS: DOCUSATE SODIUM 100 MG CAP PO SCH (08:04)
[2023-02-27] MEDS ORDERED: MEASLES, MUMPS & RUBELLA VIRUS VACCINE (MMR) VIAL ONE (09:37)
[2023-02-27] MEDS ORDERED: bisacodyL 5 MG TABEC PO SCH (20:00)
== END 2023-02-27 13:35 | disposition home or self-care (01) | DRG 807 ==
LOC: OPB 06:51 → 4S1 06:56 → 4E2 15:28